=== PATIENT | female | born 1935 | race Caucasian/White ===

== ENCOUNTER 2017-08-24 13:38 | Emergency (ER) | payer MEDICARE, MEDICAID ==
[~2017-08-24] VITALS: Ht 162.6 cm; Wt 58.0 kg
[~2017-08-24 13:38] MED LIST: ALEVE220 M2 PO; ASPIRIN LOW DOS81 M2 PO; CALCIUM600 MG PO; CENTRUM PO; CYMBALTA60 MG PO; DILAUDID2 MG PO; FLUOXETINE10 M2 PO; HYDROCO/APAP1 TA9 PO; HYDROCODONE/ACE1 TAB PO; LORTAB 5/3255 MG PO; NEXIUM2.5 MG; PERCOCET 5/325M1 TAB PO; PRILOSEC20 MG/CAP PO; TRAMADOL HCL50 MG PO; VITAMIN D31000 UNI1 PO; [UNRECOGNIZED DRUG - OTHER]
[2017-08-24 13:51] VITALS: BP 134/77
== END 2017-08-24 15:15 | disposition home or self-care (01) ==
LOC: ED 13:38
DX: S80.02XD Contusion of left knee, subsequent encounter (principal); S80.01XD Contusion of right knee, subsequent encounter; S40.011D Contusion of right shoulder, subsequent encounter; I51.9 Heart disease, unspecified; K21.9 Gastro-esophageal reflux disease without esophagitis; M81.0 Age-related osteoporosis without current pathological fracture; W01.0XXD Fall on same level from slipping, tripping and stumbling without subsequent striking against object, subsequent encounter; Y92.009 Unspecified place in unspecified non-institutional (private) residence as the place of occurrence of the external cause

== ENCOUNTER 2018-03-21 10:38 | Emergency (ER) | payer MEDICARE, MEDICAID ==
[~2018-03-21] VITALS: Ht 149.9 cm; Wt 75.0 kg
[~2018-03-21 10:38] MED LIST changes: +ADLT ASA LOW81 MG PO; +AMITIZA8 MCG PO; -ASPIRIN LOW DOS81 M2 PO; +BIOTIN5000 MC1 PO; +CENTRUM SILVER1 TA1 PO; +TRAMADOL HYDROC50 MG PO; +TRAZODONE50 MG PO; +VITAMIN D400 UNI1 PO; +Vitamin B12 PO
[2018-03-21 11:48] VITALS: BP 114/67
[2018-03-21] MEDS ORDERED: ULTRAM50 M1 PO (11:50)
[2018-03-21] MEDS ORDERED: VITAMIN B-125000 MCG SL (11:53)
== END 2018-03-21 11:48 | disposition home or self-care (01) ==
LOC: ED 10:38
PROC: 0HBLXZZ Excision of Left Lower Leg Skin, External Approach (ICD-10-PCS; principal; 2018-03-21)
DX: B07.9 Viral wart, unspecified (principal); F32.9 Major depressive disorder, single episode, unspecified; M54.5 Low back pain; M81.8 Other osteoporosis without current pathological fracture

== ENCOUNTER 2018-05-12 09:02 | Emergency (ER) | payer MEDICARE, MEDICAID ==
[~2018-05-12] VITALS: Ht 149.9 cm; Wt 58.2 kg
[~2018-05-12 09:02] MED LIST changes: +MACU HEALTH PO; +ULTRAM50 M1 PO; +VITAMIN B-125000 MCG SL
[2018-05-12 10:50] VITALS: BP 117/84
== END 2018-05-12 11:14 | disposition home or self-care (01) ==
LOC: ED 09:02
DX: R51 Headache (principal)

== ENCOUNTER → 2018-06-28 | Outpatient (REF) | payer MEDICARE, MEDICAID ==
[~2018-06-28] MED LIST changes: +VITAMIN B-125000 MCG PO; -VITAMIN B-125000 MCG SL
[2018-06-28 09:30] LABS: GFR > 60 ML/MIN (>=60 (CALC)); GFR FOR AFR.AMER. > 60 ML/MIN (>=60 (CALC))
== END | disposition home or self-care (01) ==
LOC: CT 09:07
PROVIDERS: ATTEND Surgery
DX: K46.9 Unspecified abdominal hernia without obstruction or gangrene (principal)
CPT/HCPCS: Q9967

== ENCOUNTER 2018-07-03 09:00 | Outpatient (RCR) | payer MEDICARE, MEDICAID ==
--- NOTE | 2018-06-16 12:36 | NUR ---
Pt. in for Treatment Team and IOP. Pt. is clean and neat. Alert and oriented times 3. Affect is mildly constricted. Mood superficial. Pt. states she is "dealing with it". Pt. states IOP "help me alot". Pt. denies any suicidal ideations. Pt. states she is compliant with her medications. Pt to bring in medication changes to the Program Nurse. Pt. to continue with her current treatment plan. Pt. attending IOP 2 times a week with monthly 1:1. Will follow up with the Pt. in one month. Treatment Tean is concluded.
== END 2018-07-06 23:59 | disposition home or self-care (01) ==
LOC: SLIP3 09:00
PROVIDERS: ATTEND Specialist
DX: F33.1 Major depressive disorder, recurrent, moderate (principal); F41.1 Generalized anxiety disorder

== ENCOUNTER → 2018-07-10 | Outpatient (REF) | payer MEDICARE, MEDICAID | END | disposition home or self-care (01) | LOC: INF 06-29 11:30 | PROVIDERS: ATTEND Internal Medicine | DX: M81.8 Other osteoporosis without current pathological fracture (principal) | CPT/HCPCS: J0897 ==